=== PATIENT | female | born 1985 | race African-American/Black ===

== ENCOUNTER 2018-07-17 16:07 | Emergency (ER) | payer OTHER ==
[2018-07-17] MEDS ORDERED: NORMAL SALINE 1000 ML 1,000 ML IV ONE (17:00)
[2018-07-17] MEDS ORDERED: KETOROLAC TROMETHAMINE INJ/PF 30 MG/1 ML SDV IV ONE (17:00)
[2018-07-17] MEDS ORDERED: DIPHENHYDRAMINE HCL 50 MG/ML VIAL IV ONE (17:00)
[2018-07-17] MEDS ORDERED: METOCLOPRAMIDE HCL INJ/PF 10 MG/2 ML SDV IV ONE (17:00)
--- NOTE | 2018-07-17 17:00 | ER Document Report ---
ED Medical Screen (RME) - General Mode of Arrival: Ambulatory Information source: Patient TRAVEL OUTSIDE OF THE [place] IN LAST 30 DAYS: No <JUANITA VÁZQUEZ - Last Filed: 07/17/18 17:17> <MANDA WISDOM - Last Filed: 07/17/18 21:03> - General Chief Complaint: Abdominal Pain Stated Complaint: ABDOMINAL PAIN Time Seen by Provider: 07/17/18 16:50 Notes: Patient is a 32 year old female with a history of pancreatitis ,diverticulosis, cholecystectomy presents to the emergency department complaining of abdominal pain onset yesterday. Patient states the pain is located near her umbilicus region and reports having similar pain 4 years ago. She states 4 years ago she was told her liver enzymes were elevated but normalized on their own. She mentions having a scheduled cat scan tomorrow due to a hernia (does not know specificity of hernia). Patient also complains of vomiting, nausea, chills and diaphoresis. Pateint denies any hematemesis or diarrhea. GENERAL: Alert, appears uncomfortable. No acute distress. HEAD: Normocephalic, Atraumatic. NECK: Full range of motion. Supple. Trachea midline. LUNGS: Clear to auscultation bilaterally, no wheezes, rales, or rhonchi. No respiratory distress. HEART: Regular rate and rhythm. No murmurs, gallops, or rubs. ABDOMEN: Soft, epigastric, RUQ and suprapubic tenderness to palpation with guarding in the suprapubic region. Non-distended. Bowel sounds present in all 4 quadrants. EXTREMITIES: Moves all four extremities spontaneously. PSYCH: Normal affect, normal mood. (JUANITA VÁZQUEZ) - Related Data Allergies/Adverse Reactions: No Known Allergies Allergy (Unverified 07/17/18 16:10) Past Medical History - Social History Chew tobacco use (# tins/day): No Frequency of alcohol use: None Drug Abuse: None Renal/ Medical History: Denies: Hx Peritoneal Dialysis GI Medical History: Reports: Hx Gastroesophageal Reflux Disease Past Surgical History: Reports: Hx Section, Hx Cholecystectomy, Hx Tubal Ligation <JUANITA VÁZQUEZ - Last Filed: 07/17/18 17:17> - Vital signs Vitals: Temp Pulse BP Pulse Ox 98.0 F 82 102/89 H 98 07/17/18 16:17 07/17/18 16:17 07/17/18 16:17 07/17/18 16:17 Course - Laboratory Result Diagrams: 07/17/18 17:28 07/17/18 17:28 <MANDA WISDOM - Last Filed: 07/17/18 21:03> - Vital Signs Vital signs: Temp Pulse Resp BP Pulse Ox 98.1 F 77 18 115/86 H 100 07/17/18 19:37 07/17/18 19:37 07/17/18 19:37 07/17/18 19:37 07/17/18 19:37 - Laboratory Laboratory results interpreted by me: 07/17/18 07/17/18 07/17/18 17:13 17:28 17:28 WBC 11.7 H MCH 26.2 L RDW 14.2 H Seg Neutrophils % 85.6 H Lymphocytes % 9.3 L Absolute Neutrophils 10.0 H Calcium 10.3 H Total Protein 8.5 H Urine Urobilinogen 2.0 H Doctor's Discharge <JUANITA VÁZQUEZ - Last Filed: 07/17/18 17:17> <MANDA WISDOM - Last Filed: 07/17/18 21:03> - Discharge Clinical Impression: Hernia, Abdominal pain Condition: Good Disposition: HOME, SELF-CARE Instructions: Umbilical Hernia ([facility]) Additional Instructions: You were seen today in the emergency department for your umbilical hernia. You had evaluation including a physical exam, and blood work. You should continue to monitor yourself, if your hernia is stuck or will not go back into your belly you should return to the emergency room otherwise call the surgeon who you are scheduled to see and keep your appointment this week. Referrals: ORA OSBORNE PA [Primary Care Provider] - Follow up as needed
[2018-07-17 17:53] LABS: ABSOLUTE LYMPHOCYTES (AUTO) 1.1 10^3/uL (0.5-4.7); ABSOLUTE MONOCYTES (AUTO) 0.5 10^3/uL (0.1-1.4); BASOPHILS % (AUTO) 0.3 % (0-2); EOSINOPHILS % (AUTO) 0.3 % (0-6); HEMATOCRIT 39.7 % (36.0-47.0); LYMPHOCYTES % (AUTO) 9.3 % (13-45); MEAN CORPUSCULAR HEMOGLOBIN 26.2 pg (27.0-33.4); MEAN CORPUSCULAR HGB CONC 32.6 g/dL (32.0-36.0); MEAN CORPUSCULAR VOLUME 80 fl (80-97); MONOCYTES % (AUTO) 4.5 % (3-13); PLATELET COUNT 319 10^3/uL (150-450); RED BLOOD COUNT 4.94 10^6/uL (3.72-5.28); RED CELL DISTRIBUTION WIDTH 14.2 % (11.5-14.0); SEGMENTED NEUTROPHILS % (AUTO) 85.6 % (42-78); TOTAL CELLS COUNTED % (AUTO) 100 %; WHITE BLOOD COUNT 11.7 10^3/uL (4.0-10.5)
[2018-07-17 17:57] LABS: APPEARANCE,URINE CLEAR; BILIRUBIN,URINE NEGATIVE (NEGATIVE); COLOR,URINE YELLOW; GLUCOSE, URINE NEGATIVE (NEGATIVE); KETONES,URINE NEGATIVE (NEGATIVE); LEUKOCYTE ESTERASE,URINE NEGATIVE (NEGATIVE); NITRITE,URINE NEGATIVE (NEGATIVE); PROTEIN,URINE NEGATIVE (NEGATIVE); URINE SPECIFIC GRAVITY 1.016
[2018-07-17 18:08] LABS: ALANINE AMINOTRANSFERASE 22 U/L (9-52); ALBUMIN 4.8 g/dL (3.5-5.0); ALKALINE PHOSPHATASE 72 U/L (38-126); ANION GAP 9 (5-19); ASPARTATE AMINO TRANSFERASE 22 U/L (14-36); BILIRUBIN,DIRECT 0.2 mg/dL (0.0-0.4); BILIRUBIN,TOTAL 0.4 mg/dL (0.2-1.3); BLOOD UREA NITROGEN 10 mg/dL (7-20); CALCIUM 10.3 mg/dL (8.4-10.2); CARBON DIOXIDE 27 mmol/L (22-30); CHLORIDE 102 mmol/L (98-107); GLUCOSE 95 mg/dL (75-110); LIPASE 201.9 U/L (23-300); POTASSIUM 4.1 mmol/L (3.6-5.0); SODIUM 138.2 mmol/L (137-145); TOTAL PROTEIN 8.5 g/dL (6.3-8.2)
--- NOTE | 2018-07-17 19:31 | ER Document Report ---
ED General - General Chief Complaint: Abdominal Pain Stated Complaint: ABDOMINAL PAIN Time Seen by Provider: 07/17/18 16:50 Mode of Arrival: Ambulatory Information source: Patient TRAVEL OUTSIDE OF THE [place] IN LAST 30 DAYS: No - HPI Patient complains to provider of: Hernia Onset: This evening - This is a 32-year-old female with a long-standing history of a periumbilical hernia for which she has been evaluated in the past and currently has an appointment scheduled with a general surgeon in the coming week. She notes that she has had intermittent pain since several months prior and today it seemed a little worse than usual. During her time in the emergency department however her pain is dissipated. She denies any fevers or chills, episodes of emesis, constipation diarrhea dysuria does endorse pain near the bellybutton. She has had similar episodes in the past which have spontaneously resolved. - Related Data Allergies/Adverse Reactions: No Known Allergies Allergy (Unverified 07/17/18 16:10) Past Medical History - General Information source: Patient - Social History Smoking Status: Never Smoker Chew tobacco use (# tins/day): No Frequency of alcohol use: None Drug Abuse: None Family History: Reviewed & Not Pertinent Patient has suicidal ideation: No Patient has homicidal ideation: No Renal/ Medical History: Denies: Hx Peritoneal Dialysis GI Medical History: Reports: Hx Gastroesophageal Reflux Disease Past Surgical History: Reports: Hx Section, Hx Cholecystectomy, Hx Tubal Ligation Review of Systems - Review of Systems -: Yes All other systems reviewed and negative Physical Exam - Vital signs Vitals: Temp Pulse BP Pulse Ox 98.0 F 82 102/89 H 98 07/17/18 16:17 07/17/18 16:17 07/17/18 16:17 07/17/18 16:17 - General General appearance: Appears well In distress: None - HEENT Head: Normocephalic Eyes: Normal Conjunctiva: Normal Cornea: Normal Extraocular movements intact: Yes Eyelashes: Normal Pupils: PERRL - Respiratory Respiratory status: No respiratory distress Chest status: Nontender Breath sounds: Normal Chest palpation: Normal - Cardiovascular Rhythm: Regular Heart sounds: Normal auscultation Murmur: No - Abdominal Inspection: Other - Stria from previous and surgery, there is a palpable defect at the 3 o'clock position in comparison to the umbilicus, there is no appreciable hernia Tenderness: Nontender Organomegaly: No organomegaly - Back Back: Normal - Extremities General upper extremity: Normal inspection, Nontender, Normal ROM, Normal strength General lower extremity: Normal inspection, Nontender, Normal ROM, Normal strength - Neurological Neuro grossly intact: Yes Cognition: Normal Orientation: AAOx4 [place] Coma Scale Eye Opening: Spontaneous [place] Coma Scale Verbal: Oriented [place] Coma Scale Motor: Obeys Commands [place] Coma Scale Total: 15 Speech: Normal Cranial nerves: Normal Motor strength normal: LUE, RUE, LLE, RLE - Psychological Associated symptoms: Normal affect Course - Re-evaluation Re-evalutation: 07/18/18 00:58 This is a remarkably well-appearing 32-year-old female with a history of a periumbilical hernia in the past. On examination she does have a reducible hernia at the 3 o'clock position near the bellybutton. She is able to tolerate p.o., is not having any pain at this time, her abdominal examination is benign. We will plan for discharge this patient with return precautions do not believe there is any indication for imaging at this time as the patient does not exhibit symptoms suggestive of a incarcerated hernia, or strangulated hernia. Do not believe there is any underlying cause of this patient's abdominal pain. Encouraged her to follow-up with her surgeon as previously scheduled. - Vital Signs Vital signs: Temp Pulse Resp BP Pulse Ox 98.1 F 77 18 115/86 H 100 07/17/18 19:37 07/17/18 19:37 07/17/18 19:37 07/17/18 19:37 07/17/18 19:37 - Laboratory Result Diagrams: 07/17/18 17:28 07/17/18 17:28 Laboratory results interpreted by me: 07/17/18 07/17/18 07/17/18 17:13 17:28 17:28 WBC 11.7 H MCH 26.2 L RDW 14.2 H Seg Neutrophils % 85.6 H Lymphocytes % 9.3 L Absolute Neutrophils 10.0 H Calcium 10.3 H Total Protein 8.5 H Urine Urobilinogen 2.0 H Discharge - Discharge Clinical Impression: Hernia Abdominal pain Qualifiers: Abdominal location: periumbilical Qualified Code(s): R10.33 - Periumbilical pain Condition: Good Disposition: HOME, SELF-CARE Instructions: Umbilical Hernia ([facility]) Additional Instructions: You were seen today in the emergency department for your umbilical hernia. You had evaluation including a physical exam, and blood work. You should continue to monitor yourself, if your hernia is stuck or will not go back into your belly you should return to the emergency room otherwise call the surgeon who you are scheduled to see and keep your appointment this week. Referrals: ORA OSBORNE PA [Primary Care Provider] - Follow up as needed
[2018-07-17 19:38] VITALS: BP 115/86
== END 2018-07-17 19:45 | disposition home or self-care (01) ==
LOC: ER 16:07
DX: K42.9 Umbilical hernia without obstruction or gangrene (principal); R10.33 Periumbilical pain
CPT/HCPCS: 99284; 96361; 96374; 96375; 36415; 83690; 84703; 85025; 80053; 81001; J1200; J1885; J2765; J7030

== ENCOUNTER 2018-08-08 19:46 | Emergency (ER) | payer OTHER ==
[2018-08-08] MEDS ORDERED: IBUPROFEN 600 MG TABLET PO ONE (21:35)
--- NOTE | 2018-08-08 21:42 | ER Document Report ---
HPI - HPI Patient complains to provider of: Cough and congestion Pain Level: 4 Context: Patient is a 33-year-old female presenting to the emergency department complaining of cough, congestion, body aches, fever since yesterday. Patient denies nausea, vomiting, diarrhea, abdominal pain. Does admit to some urinary hesitancy and dysuria x1 day. Patient denies any vaginal discharge. Past medical history: Umbilical hernia, surgery scheduled Meds: None Allergies: None Surgical history: Cholecystectomy, Patient admits to occasional EtOH use, denies illicit drug use, denies cigarette smoking. - REPRODUCTIVE LMP: 08/03 Past Medical History - General Information source: Patient - Social History Smoking Status: Never Smoker Lives with: Family Family History: Reviewed & Not Pertinent Renal/ Medical History: Denies: Hx Peritoneal Dialysis GI Medical History: Reports: Hx Gastroesophageal Reflux Disease Past Surgical History: Reports: Hx Section, Hx Cholecystectomy, Hx Tubal Ligation Vertical Provider Document - CONSTITUTIONAL Agree With Documented VS: Yes Notes: GENERAL: Alert, interacts well. No acute distress. HEAD: Normocephalic, atraumatic. No frontal or maxillary sinus tenderness EYES: Pupils equal, round, and reactive to light. Extraocular movements intact. ENT: Oral mucosa moist, tongue midline. Nares patent, swollen turbinates bilaterally, TM's intact, nonerythematous, nonbulging. Pharynx minorly erythematous, no exudate or palatal petechiae noted. NECK: Full range of motion. Supple. Trachea midline. No lymphadenopathy appreciated LUNGS: Clear to auscultation bilaterally, no wheezes, rales, or rhonchi. No respiratory distress. HEART: Tachycardic rate and rhythm. No murmur ABDOMEN: Soft, non-tender. Non-distended. Bowel sounds present in all 4 quadrants. EXTREMITIES: Moves all 4 extremities spontaneously. No edema, normal radial and dorsalis pedis pulses bilaterally. No cyanosis. BACK: no cervical, thoracic, lumbar midline tenderness. No saddle anesthesia, normal distal neurovascular exam. No CVA tenderness bilaterally NEUROLOGICAL: Alert and oriented x3. Normal speech. cranial nerves II through XII grossly intact. PSYCH: Normal affect, normal mood. SKIN: Warm, dry, normal turgor. No rashes or lesions noted. - INFECTION CONTROL TRAVEL OUTSIDE OF THE [place] IN LAST 30 DAYS: No Course - Re-evaluation Re-evalutation: 08/08/18 21:40 According to CDC recommendations patient is not at high risk therefore does not warrant influenza antivirals. Discussed this with patient at bedside. Patient understands she is to treat her cold symptoms symptomatically. 08/08/18 22:52 Urine results negative at this time. Likely upper respiratory infection caused by a virus. This was discussed at patient's bedside. Symptomatic treatment only. 08/08/18 22:55 Heart rate per nursing staff down to 94. - Vital Signs Vital signs: Temp Pulse Resp BP Pulse Ox 101.2 F H 116 H 14 137/77 H 100 08/08/18 19:53 08/08/18 19:53 08/08/18 19:53 08/08/18 19:53 08/08/18 19:53 Discharge - Discharge Clinical Impression: Viral syndrome, Dysuria Upper respiratory infection Qualifiers: URI type: unspecified viral URI Qualified Code(s): J06.9 - Acute upper respiratory infection, unspecified Condition: Stable Disposition: HOME, SELF-CARE Instructions: Acetaminophen, Fever ([facility]), Upper Respiratory Illness ([facility]), Viral Syndrome ([facility]) Additional Instructions: As we discussed your urine results are negative for infection. You likely have an upper respiratory infection that is caused by a virus. Viruses do not respond to antibiotics so they are unwarranted at this time. You must treat the signs and symptoms of your upper respiratory infection. Please take cough medicine and use nasal spray as directed. Please also alternate between Tylenol and Motrin for fever and body aches. Please still well-hydrated and get plenty of rest. Upper respiratory infections can last anywhere from 7-10 days. Please make an appointment with your primary care provider in the next 24 -48 hours please return to the emergency room for any other worsening symptoms. Prescriptions: Benzonatate [Tessalon Perles 100 mg Capsule] 100 mg PO Q8HP PRN #40 capsule PRN Reason: Ibuprofen [Motrin 600 Mg Tablet] 600 mg PO TID #15 tablet Mometasone Furoate [Nasonex] 1 spray NS Q12 #1 spray.pump Forms: Return to Work Referrals: ORA OSBORNE PA [Primary Care Provider] - Follow up as needed
[2018-08-08 22:30] LABS: APPEARANCE,URINE SLIGHTLY-CLOUDY; BILIRUBIN,URINE NEGATIVE (NEGATIVE); COLOR,URINE YELLOW; GLUCOSE, URINE NEGATIVE (NEGATIVE); KETONES,URINE NEGATIVE (NEGATIVE); LEUKOCYTE ESTERASE,URINE SMALL (NEGATIVE); NITRITE,URINE NEGATIVE (NEGATIVE); PROTEIN,URINE NEGATIVE (NEGATIVE); URINE SPECIFIC GRAVITY 1.013; UROBILINOGEN,URINE NEGATIVE mg/dL (<2.0)
[2018-08-08 23:35] VITALS: BP 136/72
== END 2018-08-08 23:32 | disposition home or self-care (01) ==
LOC: ER 19:46
DX: J06.9 Acute upper respiratory infection, unspecified (principal); B34.9 Viral infection, unspecified; R30.0 Dysuria; R05 Cough; R09.81 Nasal congestion; M79.10 Myalgia, unspecified site; R50.9 Fever, unspecified; R39.11 Hesitancy of micturition
CPT/HCPCS: 81001; 81025; 99283

== ENCOUNTER 2018-12-14 19:48 | Emergency (ER) | payer OTHER ==
[2018-12-14] MEDS ORDERED: EPINEPHRINE INJ/PF 1 MG/1 ML AMPULE ONE (20:07)
[2018-12-14] MEDS ORDERED: DEXAMETHASONE SOD PHOS INJ 10 MG/1 ML VIAL IV ONE (20:16)
[2018-12-14] MEDS ORDERED: DIPHENHYDRAMINE HCL 50 MG/ML VIAL IV ONE (20:16)
[2018-12-14] MEDS ORDERED: EPINEPHRINE INJ/PF 1 MG/1 ML AMPULE IM ONE (20:16)
--- NOTE | 2018-12-14 20:18 | ER Document Report ---
ED General - General Chief Complaint: Allergic Reaction Stated Complaint: ALLERGIC REACTION Time Seen by Provider: 12/14/18 20:07 Primary Care Provider: ORA OSBORNE PA [Primary Care Provider] - Follow up as needed Notes: Patient is a 33-year-old female without chronic medical problems who presents with 30-40 minutes of diffuse pruritus, a rash over the entirety of her body, tongue swelling and a feeling of difficulty breathing. Patient states the symptoms started abruptly without any clear trigger. She states that she had taken amoxicillin approximately 1 hour prior but has taken this many times without any problems. Symptoms started relatively abruptly and have gotten worse since that time. Patient tried Benadryl without relief. Nothing has worsened her symptoms since onset. Denies associated nausea, vomiting, diarrhea or abdominal cramping. No syncope. TRAVEL OUTSIDE OF THE [place] IN LAST 30 DAYS: No - Related Data Allergies/Adverse Reactions: No Known Allergies Allergy (Unverified 07/17/18 16:10) Past Medical History - General Information source: Patient - Social History Smoking Status: Never Smoker Frequency of alcohol use: None Drug Abuse: None Lives with: Family Family History: Reviewed & Not Pertinent Renal/ Medical History: Denies: Hx Peritoneal Dialysis GI Medical History: Reports: Hx Gastroesophageal Reflux Disease Past Surgical History: Reports: Hx Section, Hx Cholecystectomy, Hx Tubal Ligation Review of Systems - Review of Systems Notes: Constitutional: Negative for fever. HENT: Positive for tongue swelling Eyes: Negative for visual changes. Cardiovascular: Negative for chest pain. Respiratory: Positive shortness of breath Gastrointestinal: Negative for abdominal pain, vomiting or diarrhea. Genitourinary: Negative for dysuria. Musculoskeletal: Negative for back pain. Skin: Positive for rash Neurological: Negative for headaches, weakness or numbness. 10 point ROS negative except as marked above and in HPI. Physical Exam - Vital signs Vitals: Temp Pulse Resp BP Pulse Ox 98.0 F 105 H 17 120/65 99 12/14/18 19:53 12/14/18 19:53 12/14/18 19:53 12/14/18 19:53 12/14/18 19:53 Interpretation: Tachycardic Notes: PHYSICAL EXAMINATION: GENERAL: Appears moderately uncomfortable but in no acute distress HEAD: Atraumatic, normocephalic. EYES: Pupils equal round and reactive to light, extraocular movements intact, sclera anicteric, conjunctiva are normal. ENT: nares patent, tongue is mildly edematous. Moderately dry mucous membranes. NECK: Normal range of motion, supple without lymphadenopathy, no stridor LUNGS: Breath sounds clear to auscultation bilaterally and equal. No wheezes rales or rhonchi. HEART: Regular tachycardia without murmurs ABDOMEN: Soft, nontender, normoactive bowel sounds. No guarding, no rebound. No masses appreciated. EXTREMITIES: Normal range of motion, no pitting or edema. No cyanosis. NEUROLOGICAL: No focal neurological deficits. Moves all extremities spontaneously and on command. PSYCH: Normal mood, normal affect. SKIN: Warm, Dry, normal turgor, diffuse urticarial lesions over the bilateral forearms, chest and back Course - Re-evaluation Re-evalutation: 12/14/18 20:17 Patient presents with diffuse erythematous skin changes, feelings of oropharyngeal edema, somewhat abnormal phonation of her voice. She was assessed immediately after arrival. Given the patient's oropharyngeal symptoms as well as diffuse erythema she does meet criteria for anaphylaxis. She will be administered 0.5 mg of intramuscular epinephrine, IV Benadryl, IV dexamethasone and will be reassessed. 12/14/18 21:41 Patient is a complete resolution of all symptoms. Has been monitored for 1 hour without recurrence. At this time will discharge with return precautions and follow-up recommendations. Verbal discharge instructions given a the bedside and opportunity for questions given. Medication warnings reviewed. Patient is in agreement with this plan and has verbalized understanding of return precautions and the need for primary care follow-up in the next 24-72 hours. - Vital Signs Vital signs: Temp Pulse Resp BP Pulse Ox 98 F 105 H 18 115/70 99 12/14/18 22:02 12/14/18 19:53 12/14/18 21:41 12/14/18 21:41 12/14/18 21:41 Discharge - Discharge Clinical Impression: Anaphylaxis Qualifiers: Encounter type: initial encounter Qualified Code(s): T78.2XXA - Anaphylactic shock, unspecified, initial encounter Allergic reaction Qualifiers: Encounter type: initial encounter Qualified Code(s): T78.40XA - Allergy, unspecified, initial encounter Condition: Good Disposition: HOME, SELF-CARE Additional Instructions: IF YOU DEVELOP DIFFICULTY BREATHING, RETURN OF HIVES, VOMITING, LIGHTHEADEDNESS, GIVE YOURSELF THE EPINEPHRINE SHOT IMMEDIATELY AND CALL 911. NEVER HESITATE TO GIVE YOURSELF THE EPINEPHRINE THIS CAN SAVE YOUR LIFE IF YOU ARE HAVE A SERIOUS ALLERGIC REACTION. Please also follow-up with your primary care doctor for consideration of allergy testing. Prescriptions: Epinephrine [Epipen 2-Tyrone] 0.3 mg IM ONCE PRN #1 packet PRN Reason: Referrals: ORA OSBORNE PA [Primary Care Provider] - Follow up as needed
[2018-12-14 21:52] VITALS: BP 115/70
== END 2018-12-14 22:02 | disposition home or self-care (01) ==
LOC: ER 19:48
DX: T78.40XA Allergy, unspecified, initial encounter (principal); T78.2XXA Anaphylactic shock, unspecified, initial encounter; L29.9 Pruritus, unspecified; X58.XXXA Exposure to other specified factors, initial encounter; Z90.49 Acquired absence of other specified parts of digestive tract; Z98.51 Tubal ligation status
CPT/HCPCS: 99283; 96372; 96374; 96375; J1200; J0171; J1100